=== PATIENT | male | born 1995 | race African-American/Black ===

== ENCOUNTER 2018-09-09 14:35 | Day surgery (SDC) | payer OTHER ==
[2018-09-09] MEDS ORDERED: CEFAZOLIN 2 GM/D5W RTU 2 GM/50 ML RTUPB IV ONE (15:31)
[2018-09-09 15:54] LABS: HEMATOCRIT 38.9 % (37.9-51.0); HEMOGLOBIN 13.1 g/dL (13.5-17.0); MEAN CORPUSCULAR HGB CONC 33.8 g/dL (32.0-36.0); MEAN CORPUSCULAR VOLUME 92 fl (80-97); PLATELET COUNT 191 10^3/uL (150-450); RED BLOOD COUNT 4.23 10^6/uL (4.35-5.55); WHITE BLOOD COUNT 5.1 10^3/uL (4.0-10.5)
[2018-09-09 16:13] LABS: ANION GAP 12 (5-19); BLOOD UREA NITROGEN 18 mg/dL (7-20); CARBON DIOXIDE 31 mmol/L (22-30); CHLORIDE 100 mmol/L (98-107); GLUCOSE 86 mg/dL (75-110); POTASSIUM 4.4 mmol/L (3.6-5.0); SODIUM 143.4 mmol/L (137-145)
[2018-09-09] MEDS ORDERED: MIDAZOLAM 2 MG/2 ML INJ ONE (16:39)
[2018-09-09] MEDS ORDERED: ONDANSETRON HCL INJ/PF 4 MG/2 ML SDV ONE (16:39)
[2018-09-09] MEDS ORDERED: DEXAMETHASONE SOD PHOSPHATE INJ 4 MG/1 ML VIAL ONE (16:39)
[2018-09-09] MEDS ORDERED: FENTANYL CITRATE INJ/PF 100 MCG/2 ML AMPUL ONE ×3 (16:39→19:42)
[2018-09-09] MEDS ORDERED: PROPOFOL INJ 200 MG/20 ML VIAL IV ONE (16:40)
[2018-09-09] MEDS ORDERED: ACETAMINOPHEN 1,000 MG/100 ML RTUPB IV ONE (16:40)
[2018-09-09] MEDS ORDERED: MORPHINE SULFATE 10 MG/ML INJ ONE (16:40)
[2018-09-09] MEDS ORDERED: BUPIVACAINE HCL 0.5 % INJ/PF 30 ML SDV ONE (16:46)
[2018-09-09] MEDS ORDERED: PROMETHAZINE HCL INJ 25 MG/1 ML VIAL IV PRN (17:19)
[2018-09-09] MEDS ORDERED: MEPERIDINE HCL/PF INJ 25 MG/1 ML DISP.SYRIN IV PRN (17:19)
[2018-09-09] MEDS ORDERED: FENTANYL CITRATE INJ/PF 100 MCG/2 ML AMPUL IV PRN ×3 (17:19)
[2018-09-09] MEDS ORDERED: ONDANSETRON HCL INJ/PF 4 MG/2 ML SDV IV PRN ×2 (17:19→18:57)
[2018-09-09] MEDS ORDERED: DIPHENHYDRAMINE HCL 50 MG/ML VIAL IV PRN (17:19)
[2018-09-09] MEDS ORDERED: MORPHINE SULFATE 10 MG/ML INJ IV PRN ×2 (17:19→18:57)
[2018-09-09] MEDS ORDERED: OXYCODONE-ACETAMINOPHEN 5-325 MG TABLET PO PRN (18:57)
--- NOTE | 2018-09-09 19:01 | Discharge Summary ---
Discharge Summary (SDC) - Discharge Final Diagnosis: Left Wrist Transscaphoid Perilunate Dislocaiton Left Acute Carpal Tunnel Syndrome Date of Surgery: 09/09/18 Discharge Date: 09/09/18 Condition: Good Forms: ASU Anesthesia D/C Instruction, Discharge POC-Surgical Service Treatment or Instructions: FOLLOW UP APPOINTMENT ON 09/20/18 AT 1010AM Prescriptions: Ketorolac Tromethamine [Toradol 10 mg Tablet] 10 mg PO Q8 #12 tablet Oxycodone HCl/Acetaminophen [Percocet 5-325 mg Tablet] 1 tab PO Q6 PRN #25 tab PRN Reason: Referrals: MARIZA RAYMOND DO [ACTIVE STAFF] - Respiratory Treatments at Home: Deep Breathing/Coughing Discharge Activity: No Lifting Over 10 Pounds, No Lifting/Push/Pulling Report the Following to Your Physician Immediately: Fever over 101 Degrees, Unusual Bleeding, Redness, Swelling, Warmth, Increased Soreness
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
[2018-09-09] MEDS: MORPHINE SULFATE 10 MG/ML INJ ONE ×2 (19:12→19:28)
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
--- NOTE | 2018-09-09 19:36 | RADIOLOGY REPORT (SQ) ---
EXAM DESCRIPTION: NO CHG FLUORO; WRIST LEFT 3 VIEWS COMPLETED DATE/TIME: 09/09/2018 7:23 pm REASON FOR STUDY: ORIF W/ PERC PINNING LT WRIST S63.034A DISLOCATION OF MIDCARPAL JOINT OF RIGHT WR IST, INIT S63.035A DISLOCATION OF MIDCARPAL JOINT OF LEFT WRIST, INIT COMPARISON: None. FLUOROSCOPY TIME: 2 minutes 40 seconds 8 images saved to PACS. TECHNIQUE: Intra-operative images acquired during surgical procedure to evaluate progress. NUMBER OF IMAGES: 8 LIMITATIONS: None. FINDINGS: Internal fixation across scaphoid and lunate likely secondary to scapholunate ligament tea r. Screw across scaphoid fracture. IMPRESSION: IMAGE(S) OBTAINED DURING PROCEDURE. COMMENT: Quality ID [id number]: Final reports for procedures using fluoroscopy that document radiation exp osure indices, or exposure time and number of fluorographic images (if radiation exposure indices are not available) Please consult full operative report of the attending physician for description of the procedure. TECHNICAL DOCUMENTATION: JOB ID: [id number] [employer]- All Rights Reserved Reading location - IP/workstation name: [email or web address]
[2018-09-09] MEDS ORDERED: KETOROLAC TROMETHAMINE INJ/PF 30 MG/1 ML SDV ONE (19:53)
[2018-09-09 21:18] VITALS: BP 147/100
[2018-09-10] MEDS ORDERED: CEFAZOLIN 2 GM/D5W RTU 2 GM/50 ML RTUPB IV PRN (05:00)
== END 2018-09-09 21:45 | disposition home or self-care (01) ==
LOC: OROUT 14:35 → 2S 20:45 → OROUT 21:45
PROVIDERS: ATTEND Orthopaedic Surgery
DX: S63.095A Other dislocation of left wrist and hand, initial encounter (principal); S62.022A Displaced fracture of middle third of navicular [scaphoid] bone of left wrist, initial encounter for closed fracture; V89.2XXA Person injured in unspecified motor-vehicle accident, traffic, initial encounter; G56.02 Carpal tunnel syndrome, left upper limb; Z79.899 Other long term (current) drug therapy; Z87.892 Personal history of anaphylaxis; Z01.818 Encounter for other preprocedural examination
CPT/HCPCS: 64721; 36415; 85027; 80048; 73110; 25685; C1713 ×3; C1769; J2250; J3490; J1100; J3010; J1885; J2270; J2405; J2704; J0690; J0131; 01830